=== PATIENT | male | born 1980 | race Two or more races ===

== ENCOUNTER 2016-12-11 19:43 | Emergency (ER) | payer OTHER | END 2016-12-11 22:30 | disposition home or self-care (01) | LOC: CED 19:43 | DX: T40.1X1A Poisoning by heroin, accidental (unintentional), initial encounter (principal); F11.10 Opioid abuse, uncomplicated; F32.9 Major depressive disorder, single episode, unspecified; F17.200 Nicotine dependence, unspecified, uncomplicated | CPT/HCPCS: 99284 ==